=== PATIENT | female | born 1940 | race Caucasian/White ===

== ENCOUNTER 2017-02-27 12:38 | Day surgery (SDC) | payer MEDICARE, OTHER ==
--- NOTE | ~2017-02-27 | EGD ---
EGD REPORT [facility] [address] [id number] NAME: FADIA DEVI : [birth year] STATUS : REG [facility] PAT#: [id number] AGE: 76 ADM/REG DATE : 02/27/17 MR#: [id number] REPORT SERV DATE: 02/27/17 DICTATED BY: MONICA ROWE DATE: 02/27/17 REPORT STATUS : Draft TRANSCRIBED BY: [employer] DATE: 02/27/17 [facility] Patient Name: Fadia Devi Date of : 1940 Attending MD: ROOSEVELT ROWE MD Procedure Date No Time: 02/27/2017 Procedure: Colonoscopy Indications: Hematochezia, Constipation Referring MD: FAYE KAPLAN Medicines: See the Anesthesia note for documentation of the administered medications Complications: No immediate complications. Estimated blood loss: None. Procedure: Pre-Anesthesia Assessment: - ASA Grade Assessment: III - A patient with severe systemic disease. - Prior to the procedure, a History and Physical was performed, and patient medications and allergies were reviewed. The patient's tolerance of previous anesthesia was also reviewed. The risks and benefits of the procedure and the sedation options and risks were discussed with the patient. All questions were answered, and informed consent was obtained. Prior Anticoagulants: The patient has taken aspirin, last dose was 7 days prior to procedure. After reviewing the risks and benefits, the patient was deemed in satisfactory condition to undergo the procedure. After I obtained informed consent, the scope was passed under direct vision. Throughout the procedure, the patient's blood pressure, pulse, and oxygen saturations were monitored continuously. The PCF [id number] was introduced through the anus and advanced to the cecum, identified by appendiceal orifice and ileocecal valve. The colonoscopy was performed without difficulty. The ileocecal valve, appendiceal orifice and rectum were photographed. The entire colon was examined. The patient tolerated the procedure well. The quality of the bowel preparation was adequate. Findings: The perianal and digital rectal examinations were normal. A sessile polyp was found in the distal ascending colon. The polyp was 3 mm in size. The polyp was removed with a cold biopsy forceps. Resection and retrieval were complete. A sessile polyp was found in the mid transverse colon. The polyp was 4 mm in size. The polyp was removed with a cold biopsy forceps. Resection EGD REPORT [place] [id number] [facility] [place]. [address] NAME: FADIA DEVI : [birth year] STATUS : REG [facility]#: [id number] AGE: 76 ADM/REG DATE : 02/27/17 MR#: [id number] REPORT SERV DATE: 02/27/17 DICTATED BY: MONICA ROWE DATE: 02/27/17 REPORT STATUS : Draft TRANSCRIBED BY: [employer] DATE: 02/27/17 and retrieval were complete. Multiple medium-mouthed diverticula were found in the sigmoid colon and in the descending colon. Non-bleeding internal hemorrhoids were found during retroflexion and were Grade I (internal hemorrhoids that do not prolapse). No other significant abnormalities were identified in a careful examination of the remainder of the colon. Impression: - One 3 mm polyp in the distal ascending colon. Resected and retrieved. - One 4 mm polyp in the mid transverse colon. Resected and retrieved. - Diverticulosis in the sigmoid colon and in the descending colon. - Non-bleeding internal hemorrhoids. Recommendation: - Patient has a contact number available for emergencies. The signs and symptoms of potential delayed complications were discussed with the patient. Return to normal activities tomorrow. Written discharge instructions were provided to the patient. - High fiber diet indefinitely. - Discharge patient to home. - Continue present medications. - Await pathology results. - Repeat colonoscopy in 5 years for surveillance. Procedure Code(s): --- Professional --- 81947, Colonoscopy, flexible, proximal to splenic flexure; with biopsy, single or multiple Diagnosis Code(s): --- Professional --- D12.3, Benign neoplasm of transverse colon D12.2, Benign neoplasm of ascending colon K64.0, First degree hemorrhoids K57.30, Diverticulosis of large intestine without perforation or abscess without bleeding K92.1, Melena K59.00, Constipation, unspecified CPT copyright 2013 [employer] [employer]. All rights reserved. The codes documented in this report are preliminary and upon auditing coder review may be revised to meet current compliance requirements. EGD REPORT [facility] [address] [address] NAME: FADIA DEVI : [birth year] STATUS : REG [facility] PAT#: [id number] AGE: 76 ADM/REG DATE : 02/27/17 MR#: [id number] REPORT SERV DATE: 02/27/17 DICTATED BY: MONICA ROWE DATE: 02/27/17 REPORT STATUS : Draft TRANSCRIBED BY: [employer] DATE: 02/27/17 ROOSEVELT ROWE MD 02/27/2017 2:16 PM This report has been signed electronically. Number of Addenda: 0 Note Initiated On: 02/27/2017 1:49 PM Scope Withdrawal Time 0 hours 9 minutes 51 seconds [address] [id number]
[~2017-02-27 12:38] MED LIST: ALEVE220 MG PO; ASAB PO; BEN25 PO; CALTRAT600 PO; CENTRUM TAB1 TAB PO; CO Q-10200 MG PO; COREG6 PO; COZAAR100 MG PO; CYANO1000T PO; CYMBALTA60 PO; DSS PO; EVISTA60 PO; FISH-EPA1000 MG PO; FLONASE NAS; GLUCCHONDR PO; GLUCPH PO; LEVOTHYROXIN25 MCG PO; LIPITOR20 PO; LOFIBRA54 MG PO; LOTENSIN HCT1 TA1 PO; MULTIPLE VIT PO; NEUR300 PO; NEXIUM20 M1 PO; P20 PO; SINGULAIR1 PO; SLO-NIACIN500 MG PO; SPIRO25 PO; TOPXL25 PO; ULTRAM ER100 MG PO; VESICARE5 PO; VITAMIN D1000 UNI1 PO; ZETIA PO; ZYRTEC ALLGY10 MG PO
== END 2017-02-27 23:59 | disposition home or self-care (01) ==
LOC: DMU 12:38
PROVIDERS: Internal Medicine Gastroenterology
PROC: 0DBL8ZZ Excision of Transverse Colon, Via Natural or Artificial Opening Endoscopic (ICD-10-PCS; 2017-02-27)
PROC: 0DBK8ZZ Excision of Ascending Colon, Via Natural or Artificial Opening Endoscopic (ICD-10-PCS; principal; 2017-02-27 14:00)
DX: D12.2 Benign neoplasm of ascending colon (principal); D12.3 Benign neoplasm of transverse colon; K57.30 Diverticulosis of large intestine without perforation or abscess without bleeding; K64.0 First degree hemorrhoids; K92.1 Melena; K59.00 Constipation, unspecified; M19.90 Unspecified osteoarthritis, unspecified site; I10 Essential (primary) hypertension; E78.5 Hyperlipidemia, unspecified; E89.0 Postprocedural hypothyroidism; E66.9 Obesity, unspecified; Z88.8 Allergy status to other drugs, medicaments and biological substances; Z79.899 Other long term (current) drug therapy; Z98.890 Other specified postprocedural states
CPT/HCPCS: 88305